=== PATIENT | female | born 1955 | race Caucasian/White ===

== ENCOUNTER → 2021-01-09 | Outpatient (CLI) | payer MEDICARE ==
[~2021-01-09] MED LIST: FLUO10TA PO; LOSA25TA25 PO; SPIR25TA5 PO
[2021-01-09 12:03] LABS: MICROSCOPIC AUTO
[2021-01-09 12:04] LABS: ALBUMIN 3.8 g/dL (3.4-5.0); CHLORIDE 107 mmol/L (98-107)
[2021-01-09 12:06] LABS: ALANINE AMINOTRANSFERASE 26 U/L (12-78); ALKALINE PHOSPHATASE 66 U/L (45-117); BILIRUBIN,TOTAL 0.5 mg/dL (0.2-1.0); CREATININE 0.66 mg/dL (0.55-1.02); TOTAL PROTEIN 7.5 g/dL (6.4-8.2)
[2021-01-09 12:11] LABS: ANION GAP 3 mmol/L (5-15)
== END | disposition home or self-care (01) ==
LOC: STAR 10:57
PROVIDERS: ATTEND Orthopaedic Surgery
DX: Z01.812 Encounter for preprocedural laboratory examination (principal); Z20.822 Contact with and (suspected) exposure to COVID-19; M18.11 Unilateral primary osteoarthritis of first carpometacarpal joint, right hand
CPT/HCPCS: 36415; 80053; 81001; 87077; 87086; 93005; U0003; U0005; 87186

== ENCOUNTER 2021-01-29 05:46 | Day surgery (SDC) | payer MEDICARE ==
[~2021-01-29] VITALS: Ht 167.6 cm; Wt 96.8 kg
[2021-01-29] MEDS ORDERED: BUPIVACAINE/PF 0.5% ONE (06:12)
[2021-01-29] MEDS ORDERED: LIDOCAINE-MPF 1%, 5ML ONE (06:12)
[2021-01-29] MEDS ORDERED: MIDAZOLAM 1 MG/ML, 2ML ONE (06:17)
[2021-01-29] MEDS ORDERED: FENTANYL PF 250 MCG/5ML ONE (06:18)
[2021-01-29] MEDS ORDERED: ONDANSETRON 2MG/ML, 2ML ONE (06:23)
[2021-01-29] MEDS ORDERED: CEFAZOLIN 1,000 MG ONE (06:23)
[2021-01-29] MEDS ORDERED: PROPOFOL 10 MG/ML, 20ML ONE (06:23)
[2021-01-29] MEDS ORDERED: DEXAMETHASONE 4 MG/ML, 1ML ONE (06:23)
[2021-01-29] MEDS ORDERED: CHLORHEXIDINE 15 ML UDC PO ONE (06:30)
[2021-01-29] MEDS ORDERED: LACTATED RINGERS 1,000 ML IV SCH (06:30)
[2021-01-29] MEDS ORDERED: OMEP40CA8 PO (06:55)
[2021-01-29] MEDS ORDERED: FENTANYL PF 100 MCG/2ML IV PRN (07:00)
[2021-01-29] MEDS ORDERED: MEPERIDINE/PF 25MG/0.5ML IVPush PRN (07:00)
[2021-01-29] MEDS ORDERED: HALOPERIDOL 5 MG/ML IV PRN (07:00)
[2021-01-29] MEDS ORDERED: HYDROmorphone 1 MG/ML, 1ML INJ IVPush PRN (07:00)
[2021-01-29] MEDS ORDERED: ACETAMINOPHEN 325 MG TABLET PO PRN (07:00)
[2021-01-29] MEDS ORDERED: morphine SULFATE 10 MG/ML, 1ML IVPush PRN (07:00)
[2021-01-29] MEDS ORDERED: OXYcodone 5 MG/5 ML ORAL.SOL UDC PO PRN (07:00)
[2021-01-29] MEDS ORDERED: LABETALOL 5MG/ML, 20ML IV PRN (07:00)
[2021-01-29] MEDS ORDERED: hydrALAzine 20 MG/ML, 1ML IV PRN (07:00)
[2021-01-29] MEDS ORDERED: PROMETHAZINE 25 MG/ML, 1ML IVPush PRN (07:00)
[2021-01-29] MEDS ORDERED: PHENYLEPHRINE 10 MG/ML ONE (07:07)
[2021-01-29] MEDS ORDERED: ACETAMINOPHEN 650 MG/20.3 ML UDC ONE (08:29)
[2021-01-29] MEDS ORDERED: OXYcodone 5 MG/5 ML ORAL.SOL UDC ONE (08:29)
== END 2021-01-29 10:05 | disposition home or self-care (01) ==
LOC: OUT 05:46
PROVIDERS: ATTEND Orthopaedic Surgery
DX: M18.11 Unilateral primary osteoarthritis of first carpometacarpal joint, right hand (principal); M25.741 Osteophyte, right hand; I10 Essential (primary) hypertension; Z20.822 Contact with and (suspected) exposure to COVID-19; Z79.899 Other long term (current) drug therapy; Z87.891 Personal history of nicotine dependence; Z88.8 Allergy status to other drugs, medicaments and biological substances
CPT/HCPCS: 25447; 87635; C1762; C1776; J0690; J1100; J2250; J2370; J2405; J2704; J3010; J7120